=== PATIENT | male | born 2000 | race Caucasian/White ===

== ENCOUNTER 2021-08-24 11:43 | Emergency (ER) | payer SELFPAY ==
[2021-08-24] MEDS ORDERED: Dicyclomine 20 MG/2 ML VIAL ONE (12:19)
[2021-08-24] MEDS ORDERED: Ondansetron ODT 4 MG TAB ONE (12:19)
[2021-08-24] MEDS ORDERED: Ondansetron PF 4 MG/2 ML Vial ONE (12:48)
[2021-08-24] MEDS ORDERED: Ketorolac Tromethamine 30 MG/ML VIAL ONE (12:48)
[2021-08-24] MEDS ORDERED: Sodium Chloride 0.9% 1,000 ML ONE (12:48)
== END 2021-08-24 13:54 | disposition home or self-care (01) ==
LOC: MADERS 11:43
DX: A08.4 Viral intestinal infection, unspecified (principal)
CPT/HCPCS: 96361; 96372; 96374; 96375; J1885; J2405; J7050; Q0162